=== PATIENT | male | born 1930 | race Caucasian/White ===

== ENCOUNTER → 2016-06-30 | Outpatient (CLI) | payer BC ==
[~2016-06-30] MED LIST: AMLODIPINE BESYL5 MG PO; B COMPLETE1 EACH PO; BIOTIN10 MG PO; CILOSTAZOL100 MG PO; CRANBERRY500 M3 PO; DAILY MULTIPLE1 EACH PO; ENZYME DIGEST1 EACH PO; ESTER-C 1,0001 EACH PO; GABAPENTIN100 MG PO; HYDROCODON-ACE1 EAC7 PO; ISOSORBIDE MONO30 MG PO; LOSARTAN POTAS100 MG PO; METAMUCIL POWD822 GM PO; METOPROLOL TART25 MG PO; PANTOPRAZOLE SO40 MG PO; PLAVIX75 MG PO; VITAMIN D-32000 UNI2 PO; VYTORIN 10/81 TABLET PO; [UNRECOGNIZED DRUG - OTHER] PO
== END | disposition home or self-care (01) ==
LOC: RAD 10:34
DX: I73.9 Peripheral vascular disease, unspecified (principal); I72.4 Aneurysm of artery of lower extremity
CPT/HCPCS: 74174